=== PATIENT | male | born 1975 | race Caucasian/White ===

== ENCOUNTER 2024-08-22 07:32 | Outpatient (CLI) | payer OTHER, SELFPAY ==
--- NOTE | ~2024-08-22 | PE_ITS ---
EXAMINATION: PET_PETPSMAST_PT DATE: 08/22/2024 10:05 INDICATION: Prostate cancer TECHNIQUE: 5.192 mCi of Illucix Ga-[id number]) was administered i.v. Low dose computed william graphy (CT) images were acquired from the base of the brain to the base of the brain to the proximal thighs for attenuation correction and anatomic localization. Positron emission tomography (PET) image s were acquired in the same distribution beginning 98 minutes after injection. Images including fused PET/CT images were reconstructed in axial, coronal, and sagittal planes. Automated exposure control technique was employed. The dose-length product was 1445.69mGy-cm. COMPARISON: None FINDINGS: Head/neck: Typical pattern of symmetric physiologic increased activity in the lacrimal, parotid and submandibula r glands as well as along the mucosa of the nasal and oral cavities, pharynx and hypopharynx. No pat hologically enlarged cervical lymphadenopathy or suspicious foci of increased uptake in the visualize d head or neck. Chest: Respiratory motion and mild dependent atelectasis in both lungs. No suspicious pulmonary nodules, pne umonia, pulmonary edema or pleural effusion. Heart size is normal. No pericardial effusion. Thoracic aorta is normal in caliber. No pathologically enlarged or PSMA avid thoracic lymphadenopathy. Abdomen/pelvis/proximal thighs: Physiologic renal accumulation and excretion of activity in the kidneys, bladder and along portions o f ureters. There is an apparent photopenic defect in the left kidney at the anteroinferior margin of the renal hilum which demonstrates soft tissue density on CT raising suspicion for either a complex p roteinaceous/hemorrhagic cyst or solid neoplasm. There is an approximately 1.5 cm region of moderate increased activity with maximal SUV of 10.6 and the prostate located to the left and posterior to a s mall central calcification an consistent with primary prostate cancer. Normal degree and slightly het erogenous pattern of increased uptake throughout the liver and spleen without radiologic correlate or dominant PSMA avid lesion. The gallbladder, pancreas and bilateral adrenal glands are normal. Modera te uptake scattered throughout the bowels with typical duodenal and proximal jejunal predominance and without radiologic correlate, also likely physiologic. Normal appendix. No other abnormal foci of in creased uptake or pathologically enlarged lymphadenopathy in the abdomen, pelvis or proximal thighs. Musculoskeletal: C5-C6 anterior spinal fusion with anterior plate and screw fixation. Small sclerotic bone island with out abnormal activity at the greater trochanter of the proximal right femur. No other suspicious lyti c, blastic or abnormally PSMA abdomen bone lesions. IMPRESSION: 1. Small region of moderate increased activity at the left posterior aspect of the prostate consisten t with primary prostate cancer. No evident metastatic disease. 2. Photopenic defect at the left kidney which appears to demonstrate soft tissue density on CT suspic ious for either a proteinaceous/hemorrhagic cyst or renal cell carcinoma. Recommend further evaluatio n with renal protocol pre and postcontrast MRI or CT. Reviewed, dictated and finalized at location A. IMPRESSION: 1. Small region of moderate increased activity at the left posterior aspect of the prostate consistent with primary prostate cancer. No evident metastatic dis ease. 2. Photopenic defect at the left kidney which appears to demonstrate soft tissu e density on CT suspicious for either a proteinaceous/hemorrhagic cyst or renal cell carcinoma. Recommend further evaluation with renal protocol pre and postc ontrast MRI or CT.
--- OUTSIDE RECORDS SUMMARY | 2024-08-22 07:35 | XMS_ITS | CONTINUITY OF CARE DOCUMENT ---
Author Name fili penn Address Unknown Organization [facility] Address [address] [place] [address] Phone [phone] Care Team Providers Care Student Ministry Pastor Name Role Phone Abdoul HESS, Raisa Unavailable INSURANCE PROVIDERS Payer name Policy type / Coverage type [place] [employer] Other [id number]
--- OUTSIDE RECORDS SUMMARY | 2024-08-22 07:35 | XMS_ITS | Clinical Summary ---
Author Organization [facility] Address [address] [place] [id number] Care Team Providers Care Ladle Handler Name Role Phone Unavailable Primary Care Provider Unavailabl e Social History Tobacco Use Types Packs/Day Years Used Date Smoking Tobacco: Never Assessed Sex and Gender Information Value Date Recorded Sex Assigned at Not on file Legal Sex Male 7:12 PM CDT Gender Identity Not on file Sexual Orientation Not on file Plan of Treatment Health Maintenance Due Date Last Done Comments Colorectal Cancer Screening Colonoscopy (10 Years) 1973 Annual Physical 1976 Hepatitis C 12/16/1991 DTaP, Tdap and Td Vaccines ( 1 - Tdap) 1992 Hepatitis B Vaccines (1 of 3 - 19+ 3-dose series) 1992 Zoster Vaccines (1 of 2) 12/16/2023 COVID-19 Vaccine ( - 2023-2 5 season) 2024 Influenza Adult (#1) 2024 Meningococcal B Vaccine Aged Out No l onger eligible based on patient's age to complete this topic Meningococcal Vaccine Aged Out No roney jeremy eligible based on patient's age to complete this topic Pneumococcal Vaccine: Pediat rics (0 to 5 Years) and At-Risk Patients (6 to 64 Years) Aged Out No longer eligible b ased on patient's age to complete this topic RSV Immunizations Under 20 Months Aged Out No longer eligible based on patient's age to complete this topic
== END 2024-08-22 07:33 | disposition home or self-care (01) ==
PROVIDERS: PCP Family Medicine; Visit Provider Urology
DX: C61 Malignant neoplasm of prostate (principal)
CPT/HCPCS: 78815; A9596